=== PATIENT | female | born 1970 | race Caucasian/White ===

== ENCOUNTER 2020-07-13 13:51 | Emergency (ER) | payer MEDICARE, OTHER ==
[~2020-07-13] VITALS: Ht 162.6 cm; Wt 81.8 kg
[~2020-07-13 13:51] MED LIST: ALPR0.255 PO; ASPI-556 PO; NITR0.4T50 SL
[2020-07-13] MEDS ORDERED: LEFL20TA18 PO (14:25)
[2020-07-13] MEDS ORDERED: DICL100G31 TP (14:25)
[2020-07-13] MEDS ORDERED: KETOROLAC TROMETHAMINE 10 MG TABLET PO ONE (14:30)
[2020-07-13] MEDS ORDERED: CYCLOBENZAPRINE HCL 10 MG TABLET PO ONE (14:30)
[2020-07-13 15:07] VITALS: BP 113/76
== END 2020-07-13 16:09 | disposition home or self-care (01) ==
LOC: EMS 13:51
DX: S19.9XXA Unspecified injury of neck, initial encounter (principal); R51.9 Headache, unspecified; M54.6 Pain in thoracic spine; V43.52XA Car driver injured in collision with other type car in traffic accident, initial encounter; Y93.89 Activity, other specified; Y92.488 Other paved roadways as the place of occurrence of the external cause; Y99.8 Other external cause status
CPT/HCPCS: 72040; 99283